=== PATIENT | female | born 1995 | race American Indian/Alaskan Native ===

== ENCOUNTER 2019-11-28 09:37 | Emergency (ER) | payer MEDICAID ==
[2019-11-28 09:43] VITALS: BP 137/92
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
== END 2019-11-28 12:32 | disposition home or self-care (01) ==
LOC: ED 09:37
DX: S20.211A Contusion of right front wall of thorax, initial encounter (principal); Z79.899 Other long term (current) drug therapy; Y04.2XXA Assault by strike against or bumped into by another person, initial encounter; Y93.89 Activity, other specified; Y92.89 Other specified places as the place of occurrence of the external cause; Y99.8 Other external cause status
CPT/HCPCS: 99283

== ENCOUNTER 2021-10-05 03:29 | Emergency (ER) | payer MEDICARE, MEDICAID ==
[2021-10-05] MEDS ORDERED: ATROPINE 0.1% (1 MG/10 ML) CARDIAC SYRINGE ONE (03:31)
[2021-10-05] MEDS ORDERED: SODIUM CHLORIDE 0.9% 1000 ML 2,000 ML ONE (03:31)
[2021-10-05 03:41] VITALS: BP 136/58
[2021-10-05] MEDS ORDERED: predniSONE 20 MG TAB PO ONE (05:06)
[2021-10-05] MEDS ORDERED: IPRATROPIUM/ALBUTEROL SULFATE 3 ML AMPUL.NEB IH ONE (05:06)
[2021-10-05] MEDS ORDERED: IBUPROFEN 600 MG TAB PO ONE (05:07)
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
== END 2021-10-05 05:57 | disposition left against medical advice (07) ==
LOC: ED 03:29
DX: S29.011A Strain of muscle and tendon of front wall of thorax, initial encounter (principal); J45.909 Unspecified asthma, uncomplicated; F41.9 Anxiety disorder, unspecified; F17.200 Nicotine dependence, unspecified, uncomplicated; Z79.899 Other long term (current) drug therapy; X58.XXXA Exposure to other specified factors, initial encounter; Y93.89 Activity, other specified; Y92.89 Other specified places as the place of occurrence of the external cause; Y99.8 Other external cause status
CPT/HCPCS: 99282; J0461; J7030